=== PATIENT | male | born 1965 | race Caucasian/White ===

== ENCOUNTER 2019-03-26 22:54 | Inpatient (IN) ==
--- NOTE | 2019-03-26 23:23 | EKG Report ---
Test Performed on : 03/26/2019 11:12:48 PM Test Reason : IRREGULAR HR Blood Pressure : / mmHG Vent. Rate : 094 BPM Atrial Rate : 094 BPM P-R Int : 142 ms QRS Dur : 082 ms QT Int : 360 ms P-R-T Axes : -03 -12 -06 degrees QTc Int : 450 ms Normal sinus rhythm. Inferior infarct , age undetermined Abnormal ECG When compared with ECG of 21-JAN-2018 14:09, premature ventricular complexes. are no longer present Inferior infarct is now present Unconfirmed Result
[2019-03-27 02:12] LABS: BASO# 0.03 X1000 (0.0-0.2); EOS# 0.17 X1000 (0.0-0.7); EOS% 5.9 % (0.0-10.0); HEMATOCRIT 24.6 % (42.0-52.0); HEMOGLOBIN 8.2 g/dL (14.0-18.0); IMM GRAN# 0.02 X1000 (0.0-0.04); IMM GRAN% 0.7 % (0.0-0.5); LYMPH# 1.04 X1000 (1.2-3.4); LYMPH% 35.9 % (20.5-51.1); MCH 37.4 PG (27-31); MCHC 33.3 g/dL (33-37); MCV 112.3 FL (81-99); MONO% 10.3 % (1.7-9.3); MPV 8.4 FL (7.4-10.4); NEUT# 1.34 X1000 (1.4-6.5); NEUT% 46.2 % (42.2-75.2); PLT 126 X1000 (130-400); RBC 2.19 XMIL (4.7-6.1)
[2019-03-27 02:28] LABS: ALB/GLOB RATIO 1.4; ALBUMIN 3.8 g/dL (3.5-5.0); CALCIUM 9.2 mg/dL (8.8-10.2); CREATININE 2.7 mg/dL (0.7-1.2); POTASSIUM 3.9 mmol/L (3.5-5.1); TOTAL BILIRUBIN 0.42 mg/dL (0.20-1.00); TOTAL PROTEIN 6.5 g/dL (6.3-8.3)
[2019-03-27 03:19] LABS: URINE SOURCE CLEAN CATCH
[2019-03-27 03:22] LABS: BILIRUBIN URINE NEGATIVE (NEGATIVE); BLOOD URINE TRACE (NEGATIVE); COLOR YELLOW; GLUCOSE URINE NEGATIVE (NEGATIVE); KETONE URINE NEGATIVE (NEGATIVE); LEUKOCYTES URINE NEGATIVE (NEGATIVE); NITRITE URINE NEGATIVE (NEGATIVE); PROTEIN URINE NEGATIVE (NEGATIVE); SP GRAVITY URINE 1.009; TURBIDITY URINE CLEAR (CLEAR); UROBILINOGEN URINE NORMAL (NORMAL)
[2019-03-27 03:24] LABS: UR EPITHELIAL CELLS <10 /HPF (<10); URINE BACTERIA NEGATIVE /HPF; URINE RBC <10 /HPF (<10); URINE WBC <10 /HPF (<10)
[2019-03-27] MEDS ORDERED: NS 1,000 ML IV ONE (03:44)
--- NOTE | 2019-03-27 03:52 | PROVIDER DOCUMENTATION ---
This chart was entered by Miriam Trujillo Scribe, acting as scribe for Mark Richardson DO. HPI-General Adult - General Chief Complaint: B/P Problems Stated Complaint: HIGH HEART RATE, B/P LOW Time Seen by Provider: 03/27/19 01:19 Source: patient, family () Allergies/Adverse Reactions: Patient Allergies Allergy/AdvReac Type Severity Reaction Status Date / Time No Known Allergies Allergy Verified 01/08/15 10:54 Home Medications: Home Medication List Medication Instructions Recorded Confirmed Last Taken Type Cephalexin 500 mg PO TID 03/27/19 03/27/19 1 Day Ago History ~03/26/19 - History of Present Illness -Gen Adult Nature of Presenting Problems: Pt is a 53 yowm brought to the ED by his after pt's PCP told her over the phone to bring him to the ED because he had test results that concerned her. Pt has had low B/P episodes for the past month and went to PCP Friday. Pt's states that pt vomited blood last week and had a black runny bowel movement. Pt is alert and nontoxic in appearance. Location of Pain/Injury: reports: none Pain Radiation: reports: no radiation Quality of Pain: reports: none Severity: reports: mild Onset/Duration: reports: gradual, other (pt states he has not felt well the last month) Timing: reports: still present Context/Activities at Onset: reports: light activity Associated Symptoms: reports: cough, diarrhea (last week), nausea, vomiting (last week). denies: syncope Similar Symptoms Previously?: No Recently seen or treated by another doctor?: Yes (Friday at PCP) Review of Systems - Adult - REVIEW OF SYSTEMS - ADULT Constitutional: denies: chills, fever Eyes: denies: blurred vision, double vision Ears, Nose, Mouth & Throat: reports: see HPI, other (ulcer on inside of bottom lip) Cardiovascular: denies: chest pain, syncope Respiratory: denies: cough, shortness of breath Gastrointestinal: reports: diarrhea (last week, black runny bowel movement), vomiting (last week). denies: abdominal pain Genitourinary: reports: no symptoms reported Musculoskeletal: reports: no symptoms reported Integumentary: reports: no symptoms reported Neurological: denies: headache/migraines, syncope Psychiatric: reports: no symptoms reported Endocrine: reports: no symptoms reported Hematologic/Lymphatic: reports: no symptoms reported Allergic/Immunologic: reports: no symptoms reported All Other Systems: Reviewed and Negative Past History - Adult - PAST MEDICAL HISTORY-ADULT Review of Records: reports: Old Records Reviewed, Nursing Assessment Review, Medications Reviewed, Social history reviewed & non-contributory. Major Childhood Illnesses: reports: denies history Cardiovascular: reports: HTN Respiratory: reports: denies history Gastrointestinal: reports: denies history Genitourinary: reports: denies history Musculoskeletal: reports: denies history Neurological: reports: denies history Endocrine/Immune: reports: denies history Other Conditions: reports: denies history - PRIOR SURGERIES/PROCEDURES Surgical/Procedure History: reports: none - IMMUNIZATION STATUS Childhood Immunizations: See Nurse Assessment Flu Vaccine: See Nurse Assessment - FAMILY HISTORY Family History: CAD over 55 yo - SOCIAL HISTORY Smoking: non-smoker Substance Use: alcohol Alcohol Use Frequency: sober (former use) Living Situation: family () Physical Exam-General - PHYSICAL EXAM-ADULT Initial Vital Signs Reviewed: Yes - CONSTITUTIONAL General Appearance: appears well, alert, no apparent distress, obese - EYES Eyes: PERRL/EOMI - HEAD, EARS, NOSE, MOUTH & THROAT HENMT: moist mucous membranes - NECK Neck: non-tender, full range of motion, supple - RESPIRATORY Respiratory: chest non-tender, lungs clear, normal breath sounds, no pleuratic chest pain, no respiratory distress - CARDIOVASCULAR Cardiovascular: normal peripheral pulses, regular rate, rhythm, no edema - GASTROINTESTINAL (ABDOMEN) Abdominal Exam: normal bowel sounds, non tender, soft. negative: tenderness - MUSCULOSKELETAL Back Exam: normal inspection, no CVA tenderness, no vertebral tenderness Extremity: normal range of motion, non-tender, normal gait, normal inspection, no pedal edema - SKIN Integumentary: normal color, normal turgor - PSYCHIATRIC Psych/Mental Status: normal mood/affect, normal thought content, normal thought process, oriented x 3 Progress - PLAN OF CARE/RESULTS Progress/Plan/Lab Results: Vital Signs - 8 hr 03/26/19 22:58 Temperature 97.9 F Pulse Rate 90 Respiratory Rate 18 Blood Pressure 112/73 O2 Sat by Pulse Oximetry 95 Orders Category Date Time Status CHEST-2 VIEWS [RAD] Stat Exams 03/27/19 01:33 Ordered CBC WITH ELECTRONIC DIFF [HEME] Stat Lab 03/27/19 01:33 Uncollected CK PROFILE [SP CHEM] Stat Lab 03/27/19 01:33 Ordered COMPREHENSIVE METABOLIC PANEL [CHEM] Stat Lab 03/27/19 01:33 Ordered OCCULT BLOOD SCREENING [STOOL] Stat Lab 03/27/19 01:34 Uncollected TROPONIN T HIGH SENSITIVITY Stat Lab 03/27/19 01:33 Uncollected EKG [EKG] Stat Ther 03/26/19 23:02 Draft Result Diagrams: 03/27/19 01:35 03/27/19 01:35 - EKG 1 Time of EKG reading by physician:: 23:15 EKG Read and Signed by:: Mark Richardson EKG Interpretation (*Must complete 3 of following elements*): Abnormal Rate: 94 Rhythm: NSR Flippin: normal QRS: normal Comments: Inferior infarct, age undetermined - XRAY 1 XRAY Study: Chest Impression: See EMR Report Departure - Departure Date of Disposition Decision: 03/27/19 Time of Disposition Decision: 03:52 DIAGNOSIS: Acute renal failure Qualifiers: Acute renal failure type: unspecified Qualified Code(s): N17.9 - Acute kidney failure, unspecified Disposition: ADMITTED INPATIENT 09 Certified Medical Emergency: Emergent Condition: Fair Referrals and Follow-Ups: Ana Corea MD [Primary Care Provider] - - Critical Care Note This patient required my direct & personal management of CC.: No Attestation - Physician/ LUCITA Attestation Patient care was provided by Advanced Practice Provider:: No The physician spent face to face time with patient:: Yes Advanced Practice Provider documentation review:: Supervising physician onsite and consulted in the evaluation and care of this patient. The physician did have a face to face encounter with the patient. This chart was documented by the indicated scribe, (Miriam Trujillo Scribe) and accurately reflects the services I performed and decisions made by me, Mark Richardson DO, as attested by the provider's signature.
--- NOTE | 2019-03-27 05:07 | HISTORY AND PHYSICAL ---
ADDENDUM: Mr. David Bhat is here in our ER at the behest of his primary care provider telling him to go to the ER because of abnormal blood work. The patient states that a few days ago he had coffee grounds emesis and a few melanotic stools. Other than that, does not have any acute complaints and denies any cardiorespiratory complaints or leg swelling. His hemoglobin 8, down from 9. His creatinine is 2.7, up from 0.8 although this is over a year ago. He denies bleeding from any other orifice. No PND, orthopnea or pedal edema. He does still drink a pint of vodka at least every other day and states he enjoys getting "high" from drinking. He has no immediate desire to quit drinking liquor. I have made the patient aware of the risk he subjecting himself to by drinking an ordinate amount of alcohol and I told him that I believe the pancytopenia noted on his blood work is a result of his alcohol. I do believe that he may have alcoholic liver disease. The main reason why we are admitting him is because of his elevated creatinine, I want to determine if it is acute or acute on chronic or chronic. We will give him the IV fluids. Replete his creatinine tomorrow morning. If it drops, we will continue with this regimen while discontinuing any potential nephrotoxic medications. Anemia workup will be ordered. Banana bag will be given, p.r.n. Ativan will be administered or patient could be offered alcohol since he does want to quit drinking, but because of his recent history of presumed upper GI emesis, this would not be a good idea. IV PPIs will be administered also. His exam is essentially unremarkable, except for a friction blister at the medial aspect of his right great toe. Otherwise, he is morbidly obese and may benefit from sleep evaluation. cc: Anabell Harrington MD
[2019-03-27 05:11] LABS: INR 1.03; PROTIME 13.6 Seconds (11.0-16.0)
[2019-03-27 05:12] LABS: PTT 26.5 Seconds (22.3-41.8)
[2019-03-27 05:19] LABS: MAGNESIUM 1.7 mg/dL (1.5-2.7)
[2019-03-27 05:21] LABS: UR AMPHETAMINES QUAL NONE DETECTED (NONE DETECT); UR BARBITUATES QUAL NONE DETECTED (NONE DETECT); UR BENZODIAZEPIN QUAL NONE DETECTED (NONE DETECT); UR CANNABINOIDS QUAL NONE DETECTED (NONE DETECT); UR COCAINE QUAL NONE DETECTED (NONE DETECT); UR METHADONE QUAL NONE DETECTED (NONE DETECT); UR OPIATES QUAL NONE DETECTED (NONE DETECT); UR OXYCODONE QUAL NONE DETECTED (NONE DETECT); UR PCP QUAL NONE DETECTED (NONE DETECT)
[2019-03-27] MEDS ORDERED: TYLENOL PO PRN (07:59)
[2019-03-27] MEDS ORDERED: ZOFRAN IV PRN (07:59)
[2019-03-27] MEDS ORDERED: SODIUM CHLORIDE 0.9% INJ SCH (08:00)
[2019-03-27 08:18] LABS: ALBUMIN 3.4 g/dL (3.5-5.0); CREATININE 2.4 mg/dL (0.7-1.2); PHOSPHORUS 2.4 mg/dL (2.7-4.5); POTASSIUM 3.9 mmol/L (3.5-5.1)
[2019-03-27] MEDS: NS 1,000 ML IV SCH ×2 (08:29→23:02)
[2019-03-27] MEDS: PROTONIX IV SCH ×2 (08:29→21:16)
--- NOTE | 2019-03-27 08:35 | Diag Imaging Result Doc PS360 ---
EXAM: CHEST-2 VIEWS INDICATION: hypertension TECHNIQUE: 2 views COMPARISON: None. FINDINGS: There is a right upper lobe calcified granuloma. The lungs are grossly clear, otherwise. There is no discrete pleural fluid collection or pneumothorax. The cardiomediastinal silhouette and central vasculature are grossly unremarkable. IMPRESSION: No evidence of acute pathology by plain radiograph. Electronically signed by Jose Trinidad 03/27/2019 8:32 AM
[2019-03-27 08:39] LABS: UR CREAT RANDOM 75.8 mg/dL (14-26); UR PROT RANDOM 14.2 mg/dL
[2019-03-27] MEDS: M.V.I.-12 10 ML, FOLIC ACID 1 MG, MAGNESIUM SULFATE 1 GM, THIAMINE 100 MG in NS 1,000 ML IV SCH (09:57)
[2019-03-27] MEDS: HUMULIN R SUBQ SCH ×3 (11:08→23:01)
[2019-03-27 11:38] LABS: HEMATOCRIT 23.8 % (42.0-52.0)
[2019-03-27 11:56] LABS: HEMOGLOBIN A1C 4.7 % (4.8-6.0)
--- NOTE | 2019-03-27 13:43 | Diag Imaging Result Doc PS360 ---
EXAM: US RENAL 2 (RETROPER) COMPLETE 03/27/2019 HISTORY: decreased renal function TECHNIQUE: Renal ultrasound COMMENT: The urinary bladder is normal in appearance. Visualization of the left kidney is somewhat suboptimal. There is no evidence of hydronephrosis on either side. The right kidney is 11.3 x 6.5 x 6.9 cm the left is 8.4 x 4.3 x 5.1 cm. There are incidentally noted gallstones some which measure up to a centimeter in size. There is no sonographic Muse sign. IMPRESSION: No evidence of obstructive uropathy. Cholelithiasis. Electronically signed by Juan Santos 03/27/2019 1:41 PM
[2019-03-27] MEDS: ATIVAN IV PRN (13:54)
[2019-03-27] MEDS: LIBRIUM PO SCH ×3 (13:54→23:00)
[2019-03-27 16:42] LABS: URINE SOURCE CATH
[2019-03-27 16:50] LABS: BILIRUBIN URINE NEGATIVE (NEGATIVE); BLOOD URINE NEGATIVE (NEGATIVE); COLOR YELLOW; GLUCOSE URINE TRACE mg/dL (NEGATIVE); KETONE URINE TRACE mg/dL (NEGATIVE); LEUKOCYTES URINE NEGATIVE (NEGATIVE); NITRITE URINE NEGATIVE (NEGATIVE); PROTEIN URINE NEGATIVE (NEGATIVE); SP GRAVITY URINE 1.012; TURBIDITY URINE CLEAR (CLEAR); UROBILINOGEN URINE NORMAL (NORMAL)
[2019-03-27 16:51] LABS: UR EPITHELIAL CELLS <10 /HPF (<10); URINE BACTERIA NEGATIVE /HPF; URINE RBC <10 /HPF (<10); URINE WBC <10 /HPF (<10)
[2019-03-27 17:09] LABS: UR CREAT RANDOM < 4.2 mg/dL (14-26); UR PROT RANDOM < 4.0 mg/dL; UR SODIUM 42 mmoll
--- NOTE | 2019-03-27 17:53 | HISTORY AND PHYSICAL ---
DATE AND TIME: 03/27/2019 at 0530. CHIEF COMPLAINT: Abnormal labs. HISTORY OF PRESENT ILLNESS: Mr. Bhat is a 53-year-old male past medical history of hypertension, arthritis, diabetes mellitus, diabetic neuropathy and alcohol abuse. The patient states that he was sent to the ER for further evaluation due to abnormal labs related to renal function. The patient as well as reports there has been a recent increase in his creatinine. The patient did state that over the past month he has had some generalized weakness and fatigue. He did report that several days ago right around beginning the new year that he did have a few episodes of coffee-grounds emesis as well as melenic stools though this did not last more than a period of like 24 hours then resolved on its own. The patient states he has not had any further episodes of this since and actually at this time is not reporting any other symptoms. He denies any headache. He did state that he does occasionally sometimes become dizzy though this usually when he goes from a lying to a sitting or sitting to a standing position quickly. He denies any chest pain, shortness of breath, he only reports occasional cough though this is not worsened. He denies any abdominal pain, nausea, vomiting or diarrhea at present. He denies any dysuria or any noticeable decreased urine output. He does have some occasional swelling in bilateral lower extremities though at this time this is not worsened. He does have diabetic neuropathy though denies any other new or worsened pain, numbness, tingling or swelling in extremities . He denies any fever, body aches or chills. The patient reports that he was taking lisinopril, metformin and gabapentin. He also reports that they did add on hydrochlorothiazide to his lisinopril and the patient is reporting that they placed him on allopurinol to help with the renal function. Though he did state that when he recently saw his physician that they did hold pretty much all of his medications due to his current renal function. The patient does report that he uses [id number] ibuprofen he takes up to 800 mg twice daily. He also does have alcohol abuse as well. He reports that he drinks up to 2 pints of vodka a day though states he can go periods of time without having withdrawal symptoms though he did report last week after not drinking for few days he did become shaky though other than this did not have any other reported symptoms . He denies any history of any confusion or altered mental status or seizures due to not drinking. The patient reports that his last alcoholic beverage was just a few hours prior to his arrival to the ER. He also has reported right after he did have his few episodes of vomiting coffee ground emesis he did he did have a sore throat almost like it burned every time he ate. This is likely secondary to his vomiting episode possible some esophagitis. The patient was placed inpatient admission for further treatment evaluation of acute kidney injury, pancytopenia, possible upper GI bleed and alcohol abuse. REVIEW OF SYSTEMS: A 14 point review of systems was conducted with the patient and all were negative except for pertinent positives mentioned in the HPI. PAST MEDICAL HISTORY: 1. Hypertension. 2. Arthritis. 3. Diabetes mellitus type 2. 4. Diabetic neuropathy. 5. History of alcohol abuse. PAST SURGICAL HISTORY: Right ankle surgery which the patient did previously have hardware placed though in January 2018 due to infection he did have revision of the surgery and did have his hardware removed. SOCIAL HISTORY: The patient denies any previous tobacco or illicit drug use though does report that he drinks approximately up to 2 pints of vodka a day. The patient states that this time he only drink vodka though previously did have a history of drinking other liquors which include whiskey and beer. He states that he has had heavy daily alcohol use now for a period of 6-8 years. FAMILY HISTORY: Positive for his mother having history of lung cancer. His father had a history of heart disease and did have CABG and stents placed. ALLERGIES: Patient has no known allergies. HOME MEDICATIONS: The patient reports that he is not taking any medications this time because they have been held, he did reportedly previously take lisinopril/hydrochlorothiazide, metformin, gabapentin, allopurinol and does take over the counter ibuprofen daily. DIAGNOSTIC DATA: White blood cell count 2900, hemoglobin 8.2, hematocrit 24.6, platelet count 126,000, PT 13.6, INR 1.03, PTT is 26.5. Sodium 135, potassium 3.9, chloride 93, serum bicarb is 23, BUN 41, creatinine 2.7, GFR is 25, glucose 90, calcium 9.2, magnesium 1.7. Liver function tests within normal limits. CK 37, troponin T 49. Urinalysis was obtained via clean catch was positive for some trace blood though was otherwise negative for glucose, ketones, nitrites, bilirubin, leukocytes, white blood cell or bacteria. Chest x-ray showed no evidence of acute pathology per Radiology. EKG showed normal sinus rhythm at a rate of 94 with a QTc of 450. PHYSICAL EXAMINATION: VITAL SIGNS: At this time temperature 98.3 degrees, heart rate 98, respirations 14, blood pressure is 128/80, oxygen saturation is 98% on room air. GENERAL: Mr. Bhat is a 53-year-old obese male who is resting in the ER stretcher he was in no acute distress. He was awake, alert, able to answer questions appropriately. HEENT: Head is atraumatic, normocephalic. Pupils are equal, round, reactive to light, were 3 mm bilaterally and brisk. Oral mucosa was moist. Oropharynx is clear. NECK: Supple, trachea midline. CARDIOVASCULAR: Patient has S1-S2 present. No murmurs, gallops, rubs appreciated, regular rate and rhythm. PULMONARY: Patient has symmetrical chest expansion bilaterally. Lung sounds are clear to auscultation in bilateral full antonio. ABDOMEN: Soft, nontender, does not appear to be distended the patient does have a protuberant abdomen noted. Bowel sounds were present all 4 quadrants were normoactive. EXTREMITIES: No cyanosis or edema noted. Pulse, motor and sensory were intact in all extremities. Radial and pedal pulses were 2+ bilaterally. The patient did have a friction blister noted on the medial aspect of his right great toe. INTEGUMENTARY: Patient's skin is pink, warm, and dry . NEUROLOGICAL: Patient is alert and oriented to person, place, time and situation. He is able move all extremities. There are no focal neurological deficits noted. ASSESSMENT AND PLAN: 1. Acute kidney injury. This could be multifactorial, could be secondary to the fluid volume depletion. The patient is a daily drinker. He did report recently having a 1 day history of having several episodes of coffee-ground emesis as well as melenic stools. Though this has resolved. He also did continue taking medications of metformin, lisinopril/hydrochlorothiazide, allopurinol and ibuprofen 800 mg twice a day. This could have contributed to his acute kidney injury. We will hydrate the patient, he did receive a 1 L normal saline bolus in the emergency room, will continue with some gentle intravenous hydration as well. We will do strict intake and output continue monitor closely. We have placed a consult with Nephrology with Dr. Blackwell we will await his evaluation and further recommendations for management. 2. Pancytopenia. The patient did report several days ago that he had some coffee-grounds emesis and melenic stools. We will go ahead and evaluate him to rule out possible upper gastrointestinal bleeding though this is likely also secondary to his history of alcohol abuse. We have ordered anemia profile this time we are awaiting these results though he is hemodynamically stable. He is not require any need for transfusion at this time. We will continue to follow. 3. Possible upper gastrointestinal bleed. The patient does have a long history of several years of heavy daily alcohol use. He does report symptoms of burning when he eats or drinks as well as several days ago he did have reports of coffee-ground emesis and melenic stools. Though he states this time this has resolved. We have ordered anemia profile. We will go ahead and place the patient on PPI of Protonix 40 mg IV q.12 hours and provide some gentle hydration. We have placed a consult with Dr. Norman with Gastroenterology, we will await his evaluation and further recommendations for management will continue to follow. 4. Alcohol abuse. The patient states he has been drinking daily for a period of 6 to 8 years. Most recently he does drink up to 2 pints of vodka a day. Though he does not report that he normally has any symptoms of withdrawal when he goes without drinking. Though did report last week he did become shaky after not drinking for a day or 2. We will continue to monitor him closely for alcohol withdrawal. We will place orders for p.r.n. Ativan if needed. We did ask the patient about his alcohol consumption and whether or not he had intentions or desire to quit drinking. The patient stated that he had no immediate desire to quit drinking. He also did state that he enjoys the high he gets from drinking. He will be on continuous cardiac telemetry, will do frequent vital signs, will monitor him for alcohol withdrawal, we will monitor his electrolytes closely as well. We will go ahead and place him with a banana bag daily as well, will continue to follow. 5. History of diabetes mellitus. The patient normally takes metformin though we are holding this time given his renal function. We will place him on a sliding scale insulin per low-dose protocol, will do pattern fingerstick blood sugars. 6. History of hypertension. The patient normally takes lisinopril /hydrochlorothiazide though we are holding this at this time as well due to his renal function. Blood pressures at this time have been within normal limits, will just continue monitor these at this time, will implement antihypertensive if necessary. 7. Deep vein thrombosis prophylaxis provided with sequential compression devices. The patient was placed on the medical floor with telemetry. He will have vital signs q.4 hours, do strict intake and output. Further orders and recommendations pending hospital course, diagnostic studies and physician evaluation. Dictated by SCOT Robles for Anabell Harrington MD cc: Anabell Harrington MD MTDD
[2019-03-27 18:30] LABS: HEMATOCRIT 25.1 % (42.0-52.0); HEMOGLOBIN 8.3 g/dL (14.0-18.0)
--- NOTE | 2019-03-27 19:25 | NEPHROLOGY CONSULTATION ---
DATE: 03/27/2019 REASON FOR CONSULTATION: Acute kidney injury. HISTORY OF PRESENT ILLNESS: Mr. Bhat is a 53-year-old man who is followed by Dr. Sierra. He had normal renal function as recently as February 2018. We do not have any interposing data. He had an episode of nausea and vomiting with coffee-grounds emesis and melena approximately a week ago. He is a heavy drinker but no other listed risk factors. He had labs done with Dr. Sierra and his creatinine was elevated at 4 and so his SERAFIN inhibitor was discontinued and he was referred to Dr. Corea who he saw in the office on . His beta-quintin was also discontinued. She re- collected laboratory data and scheduled an ultrasound. When his data was reviewed by Dr. Corea last evening, she recommended that he come to the emergency room because of his history of hematemesis and his tachycardia. She was concerned about profound anemia. His evaluation in the emergency room found blood pressure 112/73 and heart rate of 90. His initial hemoglobin was 8.2. He has not had any further melena or hematochezia. No chills, fever, sweats, night sweats. He has not been aware previously of kidney disease. His is relating the fact that all medications were discontinued but allopurinol was added and she was under the understanding that was related to his kidneys. PAST MEDICAL HISTORY: Alcoholism, hypertension. SOCIAL HISTORY: As above. , lives with his . FAMILY HISTORY: Noncontributory. REVIEW OF SYSTEMS: Noncontributory. PHYSICAL EXAMINATION: Vital Signs: Blood pressure 147/79, heart rate 94, respirations 15, afebrile. General: Obese white male, no acute distress. Skin is warm and dry. No bruises. Conjunctivae are pink. Pupils are equal. Oropharynx is clear. Normal tongue. Normal teeth. Neck: Supple. Trachea is midline. Neck vein 6 cm without hepatojugular reflux. PMI not palpable. Regular rate and rhythm with no murmurs, rubs or gallops. Lungs: Have equal breath sounds. No crackles or wheezes. Abdomen: Obese, soft, nontender. Bowel sounds are present. No organomegaly or masses. Extremities: No edema, clubbing or cyanosis. IMPRESSION: Acute kidney injury. His renal function is slowly improving. Peak creatinine was 4.[address] Sierra's office. Likely intravascular volume depletion associated with hypotension and an SERAFIN inhibitor. I agree with your care thus far. He has no acute indications for dialysis. I agree with pursuing imaging to exclude obstructive uropathy. Otherwise, we will simply observe as his kidney function improves. Hydrate if needed but he appears euvolemic currently. cc: Manolo Blackwell MD
[2019-03-28 02:21] LABS: HEMATOCRIT 23.4 % (42.0-52.0); HEMOGLOBIN 7.7 g/dL (14.0-18.0)
[2019-03-28] MEDS: LIBRIUM PO SCH ×4 (04:51→22:45)
[2019-03-28 05:49] LABS: BASO# 0.02 X1000 (0.0-0.2); BASO% 0.6 % (0.0-0.8); EOS# 0.16 X1000 (0.0-0.7); EOS% 4.4 % (0.0-10.0); HEMOGLOBIN 7.8 g/dL (14.0-18.0); LYMPH# 0.76 X1000 (1.2-3.4); LYMPH% 21.1 % (20.5-51.1); MCH 38.6 PG (27-31); MCHC 32.5 g/dL (33-37); MCV 118.8 FL (81-99); MONO# 0.33 X1000 (0.11-0.59); MONO% 9.1 % (1.7-9.3); NEUT# 2.34 X1000 (1.4-6.5); NEUT% 64.8 % (42.2-75.2); PLT 117 X1000 (130-400); RBC 2.02 XMIL (4.7-6.1); RDW 13.5 % (11.5-14.5); WBC 3.61 X1000 (4.8-10.8)
[2019-03-28] MEDS: HUMULIN R SUBQ SCH ×4 (06:06→21:02)
[2019-03-28 06:37] LABS: ALB/GLOB RATIO 1.1; ALBUMIN 3.2 g/dL (3.5-5.0); CREATININE 1.6 mg/dL (0.7-1.2); MAGNESIUM 1.5 mg/dL (1.5-2.7); POTASSIUM 4.1 mmol/L (3.5-5.1); TOTAL BILIRUBIN 0.89 mg/dL (0.20-1.00); TOTAL PROTEIN 6.1 g/dL (6.3-8.3)
[2019-03-28] MEDS ORDERED: MAGNESIUM SULFATE 2 GM/S.W.I. 2 GM/50 ML IVPB IV ONE (07:56)
--- NOTE | 2019-03-28 08:18 | PROGRESS NOTE ---
DATE: 03/28/2019 SUBJECTIVE: This patient seems to be feeling better compared with yesterday. Yesterday, he was having some tremors at the level of the upper extremities but today he has just some mild tremors, not like yesterday. I will continue with Librium, which I started yesterday, and I will continue with the IV fluids as well as the banana bag. For his possible withdrawal symptoms, we will continue with Ativan as needed as well. Pending Gastroenterology recommendations for his possible gastrointestinal bleed, his hemoglobin is 7.8, and the previous one was 7.7, but he has been getting IV fluids, so I will just keep an eye on him. As per the patient, the last time he had a dark bowel movement was around February. His magnesium is borderline low and I will replace it. PHYSICAL EXAMINATION: Vital Signs: Temperature 98.2 degrees, pulse 84, respiratory rate 19, blood pressure 140/74, oxygen saturation 100%. HEENT: Head normocephalic. No trauma. PERRLA. Neck: Supple. No JVD. No masses. Central trachea. Chest: Clear to auscultation. No wheezing. No rales. Abdomen: Soft. Some tenderness to palpation at the level of the epigastric area. Extremities: No edema, no clubbing, no cyanosis. Neurological: The patient is awake alert. He is oriented x3. Mild upper extremity tremors. LABORATORY DATA: WBC 3.6, hemoglobin 7.8, hematocrit 24, platelets 117,000. Sodium 141, potassium 4.1, chloride 103, bicarbonate 23, BUN 26, creatinine 1.6, glucose 85, calcium 9, magnesium 1.5, albumin 3.2. ASSESSMENT AND PLAN: 1. Acute kidney injury. This could be multifactorial. This is getting better. He is a heavy drinker/alcoholic. We will avoid nephrotoxic medications. We will continue to monitor. This is getting better. Nephrology department on board. 2. Pancytopenia in a patient who has had coffee-ground emesis and melenic stools probably last month. He denies any problem at this moment. He is a heavy drinker. His pancytopenia could be multifactorial due to alcohol intake including bone marrow suppression. 3. Mild alcohol withdrawal symptoms. Continue with Librium and Ativan as needed. 4. Possible upper gastrointestinal bleed. Gastroenterology Department has been consulted, pending recommendations. 5. Alcohol abuse. This patient has been highly advised against alcohol use. I will continue with daily cessation education. Yesterday, we had a conversation for at least 30 minutes. 6. History of diabetes. Normally he takes metformin, but we are holding this medication. Stable. 7. History of hypertension. Apparently this patient takes lisinopril hydrochlorothiazide, but we are holding this medication because of the kidney dysfunction. His blood pressure has been stable. 8. Deep vein thrombosis prophylaxis with sequential compression devices. 9. Sleep apnea. This patient is using a CPAP machine at home. 10. Hypomagnesemia. I will replace the magnesium. I believe I will keep this patient one more day in the hospital to monitor his withdrawal symptoms, as well as his hemoglobin. I will repeat the hemoglobin today in the afternoon around 6 p.m. I do not see any active bleeding at this moment. Pending the recommendations of Gastroenterology Department, if this patient is not going to get any kind of procedure, probably I will discharge this patient home tomorrow if everything is okay. cc: Evairsto Martinez MD
[2019-03-28] MEDS: PROTONIX IV SCH ×2 (08:44→20:56)
[2019-03-28] MEDS: M.V.I.-12 10 ML, FOLIC ACID 1 MG, MAGNESIUM SULFATE 1 GM, THIAMINE 100 MG in NS 1,000 ML IV SCH (08:44)
[2019-03-28] MEDS: ATIVAN IV PRN (11:09)
--- NOTE | 2019-03-28 14:38 | GASTROENTEROLOGY CONSULTATION ---
DATE: 03/27/2019 REASON FOR CONSULT: Upper GI bleed. HISTORY OF PRESENT ILLNESS: Mr. Bhat is a 53-year-old male who came to the ER on Friday night mentioning that he had gone to his primary care provider and was asked to do some blood work, his BUN and creatinine was abnormal. he was asked to see Dr. Corae. He saw Dr. Corea on and she asked him to get admitted to the hospital. Patient reported that Friday night his heart rate was elevated. He had denied any abdominal pain but had 1 episode of vomiting where he noticed that there was some blood in his vomit which looked like coffee- ground emesis. The patient also had bowel movements which was black and tarry. He said that his throat was hurting and he was gagging all the time. The patient has mentioned that he does take aspirin and Motrin and he also drinks vodka every day. The last time patient was in the hospital was in January 2018 when he had a surgery on his right ankle and some infection in his right ankle. Patient also has an ulcer on his right foot near the big toe. The patient has a history of hypertension, arthritis, diabetes, neuropathy and alcohol abuse. He does complain of numbness and tingling in his lower extremities. The patient has denied having any fever, chills or shortness of breath. PAST MEDICAL HISTORY: Hypertension, arthritis, gout, diabetes type 2, diabetic peripheral neuropathy, history of alcohol abuse. PAST SURGERIES: Right ankle surgery in January 2018. FAMILY HISTORY: His mother had lung cancer, father had a history of heart disease, CABG and stent placed. SOCIAL HISTORY: The patient is currently single, has 2 kids, lives with his girlfriend. He denied any smoking or illicit drug but does have 2 pints of vodka a day. Patient mentioned that he used to have cocaine in the past. ALLERGIES: No known drug allergies. HOME MEDICATIONS: Allopurinol 300 mg daily, ibuprofen 200 mg twice a day, lisinopril 20 mg daily, cephalexin 500 mg 3 times a day and metoprolol tartrate 50 mg twice a day. REVIEW OF SYSTEMS: As per HPI otherwise, 12 point review of system is negative. PHYSICAL EXAMINATION: Vital Signs: Temperature 98.1 degrees, pulse 100, respiration 16, blood pressure 135/88, oxygen saturation 98% on room air, patient's weight is 256 pounds, BMI 39.1 kg per meter square. General: He is alert, oriented x3, morbidly obese, answering questions appropriately and in no acute distress. HEENT: Pale conjunctivae, no icterus. PERRL. Neck: Supple. Lungs: Clear to auscultation. Cardiovascular: Patient is tachycardic. Abdomen: Obese, soft, nontender. Hypoactive bowel sounds heard in all 4 quadrants. Extremities: No clubbing, no cyanosis, generalized edema in the lower extremities and ulcer on his right foot near the big toe and some surgical scars on right ankle. Neurological: Alert, oriented x3 nonfocal. Cranial nerves 2-12 grossly intact. LAB: WBCs are 2.90, RBC 2.19, hemoglobin 8.2, hematocrit 24.6, platelet count 126,000. PT 13.6, INR 1.03, sodium 138, potassium 3.9, chloride 98, carbon dioxide 21, anion gap 19, BUN 38, creatinine 2.4, glucose 85, calcium 9.0, phosphorus 2.4, albumin is 3.4. Urinalysis had shown trace of ketones, trace of blood. Toxicology report has shown alcohol level 187. Stool for occult blood was negative. IMAGING: Patient's chest x-ray has shown no evidence of acute pathology. His renal ultrasound show no evidence of obstructive uropathy, cholelithiasis. IMPRESSION: 1. Gastrointestinal bleed . 2. Coffee-grounds emesis. 3. Acute kidney injury. 4. Hypertension . 5. Type 2 diabetes. 6. Peripheral neuropathy. 7. Alcohol abuse. PLAN: Mr. Bhat is a 53-year-old male with a history of hypertension, diabetes, peripheral neuropathy and alcohol abuse. Gastroenterology has been consulted for his upper gastrointestinal bleed. Patient is currently on Protonix 40 mg intravenous twice a day, he is receiving in MVI bag at 150 mL per hour, patient is also on Librium. His diabetes is managed by insulin Humulin as per sliding scale. For his nausea and vomiting patient is on Zofran every 6 hours. Patient's hemoglobin and hematocrit is 8.3 and 25.1. We plan to do an EGD on Friday, we have discussed the risks, benefits and alternatives to the patient and the family member, patient acknowledges understanding of the plan of care. Further plan of care will be based on the EGD findings. This plan was discussed with Dr. Norman. Thank you for your consult. Please call us for any further questions or concerns. Dictated by SCOT Matias for Grabiel Norman MD cc: Grabiel Norman MD [facility]
[2019-03-28 17:59] LABS: HEMATOCRIT 22.5 % (42.0-52.0); HEMOGLOBIN 7.3 g/dL (14.0-18.0)
--- NOTE | 2019-03-28 19:41 | GASTROENTEROLOGY PROGRESS NOTE ---
DATE: 03/28/2019 SUBJECTIVE: Mr. Bhat is a 53-year-old male resting in bed with family at the bedside. The patient denies any nausea, vomiting, or abdominal pain. The patient also has denied noticing any black tarry stools today. He had 2 bowel movements yesterday, but he has denied having any bowel movements today. OBJECTIVE: Vital Signs: Temperature 98 degrees, pulse 103, respirations 16, blood pressure 127/78, oxygen saturation 99% on room air. Patient's weight is 256 pounds. BMI is 39.1 kg/m2. General: He is alert, oriented x3, and in no acute distress. HEENT: Pale conjunctivae. No icterus. PERRL. Neck: Supple. Lungs: Clear to auscultation. Cardiovascular: Patient is tachycardic. Abdomen: Obese, soft, nontender. Hypoactive bowel sounds heard in all 4 quadrants. Extremities: No clubbing. No cyanosis. Generalized edema in the lower extremities. The patient has ulcer on his right foot on the big toe and previous surgical scars on the right ankle noted. Neurologic: He is alert and oriented x3. LABS: WBCs are 3.61, RBC 2.02, hemoglobin 7.8, hematocrit is 24, platelet count is 117. Sodium 141, potassium 4.1, chloride 103, carbon dioxide 23, anion gap 15, BUN 26, creatinine 1.6, glucose 85, calcium 9, magnesium 1.5, total bilirubin 0.89, AST 24, ALT 20, alkaline phosphatase is 46. IMPRESSION AND PLAN: GI bleed Coffee ground emesis Acute Kidney injury Hypertension Type II diabetes Peripheral neuropathy Alcohol abuse PLAN: Mr. Bhat is a 53-year-old male with a history of hypertension, diabetes, peripheral neuropathy, and alcohol abuse. GI is following him for his upper GI bleed. The patient is currently receiving Protonix 40 mg IV twice a day. He is receiving MVI bag at 150 mL per hour. The patient's diabetes is managed by insulin, Humulin regular on a sliding scale. We plan to do an EGD tomorrow to rule out the cause of his bleeding. We have discussed the risks, benefits, and alternatives of the procedure to the patient. The patient acknowledges understanding of the plan of care. Further plan of care will be based on the EGD findings. We will continue to monitor the patient and follow the plan of care per PCP. This plan was discussed with Dr. Norman. Please call us for any further questions or concerns. Dictated by SCOT Matias for Grabiel Norman MD cc: Grabiel Norman MD [facility]
[2019-03-29] MEDS: ATIVAN IV PRN (02:52)
[2019-03-29] MEDS: LIBRIUM PO SCH ×4 (04:45→23:58)
[2019-03-29 05:26] LABS: BASO# 0.02 X1000 (0.0-0.2); BASO% 0.4 % (0.0-0.8); EOS# 0.19 X1000 (0.0-0.7); HEMATOCRIT 22.2 % (42.0-52.0); HEMOGLOBIN 6.9 g/dL (14.0-18.0); LYMPH% 18.9 % (20.5-51.1); MCH 36.5 PG (27-31); MCHC 31.1 g/dL (33-37); MCV 117.5 FL (81-99); MONO# 0.35 X1000 (0.11-0.59); MONO% 7.4 % (1.7-9.3); MPV 8.6 FL (7.4-10.4); NEUT% 69.3 % (42.2-75.2); PLT 121 X1000 (130-400); RBC 1.89 XMIL (4.7-6.1); RDW 13.2 % (11.5-14.5); WBC 4.76 X1000 (4.8-10.8)
[2019-03-29 05:47] LABS: ALB/GLOB RATIO 1.2; ALBUMIN 3.1 g/dL (3.5-5.0); CALCIUM 8.8 mg/dL (8.8-10.2); CREATININE 1.6 mg/dL (0.7-1.2); POTASSIUM 3.7 mmol/L (3.5-5.1); TOTAL BILIRUBIN 0.81 mg/dL (0.20-1.00); TOTAL PROTEIN 5.7 g/dL (6.3-8.3)
[2019-03-29] MEDS: HUMULIN R SUBQ SCH ×2 (06:30→18:12)
[2019-03-29 06:36] LABS: EOS 3 % (1-10); LYMPHS 20 % (21-51); MONO 8 % (1-9); SEGS 69 % (42-75)
[2019-03-29] MEDS ORDERED: NS 500 ML IV ONE (07:32)
[2019-03-29] MEDS ORDERED: XYLOCAINE-MPF 2% ONE (08:13)
[2019-03-29] MEDS ORDERED: DIPRIVAN 1% ONE (08:13)
--- NOTE | 2019-03-29 08:47 | PROGRESS NOTE ---
DATE: 03/29/2019 SUBJECTIVE: The patient is feeling better. He is going to get an EGD today. I have decreased the dose of Librium. Hemoglobin is 6.9 and I will give him a unit of blood. OBJECTIVE: Vital Signs: Temperature 98 degrees, pulse 79, respiratory rate 17, blood pressure 129/82, oxygen saturation 99 on room air. HEENT: Head normocephalic. No trauma. PERRLA. Neck: Supple. No JVD. No masses. Central trachea. Chest: Clear to auscultation. No wheezing. No rales. Abdomen: Soft. Some mild tenderness to palpation at the level of the periumbilical area. Extremities: No edema, no clubbing, no cyanosis. He does have a chronic ulcer on the right dorsal aspect of the right foot. Neurological Examination: The patient is awake. He is oriented x3. No focal neurological deficits at this moment. Laboratory: WBC 4.7, hemoglobin 6.9, hematocrit 22.2, platelets 121,000. Sodium 142, potassium 3.7, chloride 107, bicarbonate 23, BUN 18, creatinine 1.6, glucose 87, calcium 8.8. ASSESSMENT AND PLAN: 1. Acute kidney injury, multifactorial. He is having a decent urine output, around 2 L. He is tolerating oral intake. BUN normalized. Creatinine still a little bit high at 1.6 but I believe this is going to be improved. 2. Pancytopenia in a patient who has had coffee-grounds emesis and melenic stools. He will be transfused today. He will receive 1 unit of packed red blood cells. Platelet count stable, white blood cell count improving slowly. Probably, there is a component of alcohol use and bone marrow suppression. 3. Mild alcohol withdrawal symptoms. Continue with Librium, which I have decreased the dose. 4. Possible upper gastrointestinal bleed, pending esophagogastroduodenoscopy today. 5. Alcohol abuse. This patient has been highly advised against alcohol use. I will continue with daily cessation education. 6. History of diabetes. Normally, he takes metformin but we are holding this medication for now. His hemoglobin A1c though is 4.7 so I am not quite sure about that diagnosis unless it is really well-controlled. 7. History of hypertension. We are holding lisinopril and hydrochlorothiazide because of his kidney dysfunction. Vital signs have been stable during this hospitalization. I do not think I am going to restart both medications, probably one of then, likely will be the SERAFIN inhibitor in the future. 8. Deep vein thrombosis prophylaxis with sequential compression devices. 9. Sleep apnea. This patient is using a CPAP machine at home. 10. Hypomagnesemia. This has been replaced. 11. Right dorsal foot ulcer. Aware. Orthopedic surgery on board. cc: Evaristo Martinez MD
[2019-03-29] MEDS ORDERED: VERSED ONE (08:49)
--- NOTE | 2019-03-29 09:01 | ENDOSCOPY OPERATIVE NOTE ---
[facility] ENDOSCOPY OPERATIVE NOTE , EGD PROCEDURE REPORT EXAM DATE: 03/29/2019 PATIENT NAME: David Bhat MR#: [id number] BIRTHDATE: 1965 ATTENDING: Caden Saxena MD STATUS: inpatient GROUP EXERCISE CLASS INSTRUCTOR: INDICATIONS: The patient is a 53 yr old male here for an EGD due to Anemia, melena, Coffee ground em esis. PROCEDURE PERFORMED: EGD, diagnostic MEDICATIONS: Per Anesthesia ESTIMATED BLOOD LOSS: None CONSENT: The patient understands the risks and benefits of the procedure and understands that these r isks include, but are not limited to: sedation, allergic reaction, infection, perforation and/or bleeding. Alternative means of evaluation and treatment include, among others: physical exam, x-rays, and/or surgical intervention. The patient elects to proceed with this endoscopic procedure. DESCRIPTION OF PROCEDURE: During pre-op preparation period all mechanical and medical equipment was c hecked for proper function. Hand hygiene and appropriate measures for infection prevention was taken. After the risks, benefits and alternatives of the procedure were thoroughly explained, Informed consent was verified, confirmed and timeout was successfully executed by the treatment team. The patient was anesthetized with topical anesthesia and the [id number] ([id number]) endoscope was introduced through the mouth and advanced to the second portion of the duoden um. Retroflexion was performed in the stomach and revealed no abnormalities. The gastroscope was then slowly withdraw n and removed. The patient's toleration of the procedure was good. ESOPHAGUS: Z line was noted at 46 cms. PERTINENT NEGATIVES: There was no evidence of varices. STOMACH: Two non-bleeding, linear and shallow ulcers ranging between 3-5 mm in size ranging between 3 -7mm in size were found in the gastric antrum and at the pylorus. Moderate acute gastritis (inflammation) was found i n the gastric antrum. DUODENUM: The duodenal mucosa showed no abnormalities in the duodenal bulb, 1st part duodenum, and 2n d part duodenum. ADVERSE EVENTS: There were no complications. IMPRESSIONS: 1. Z line was noted at 46 cms 2. Two ulcers ranging between 3-5 mm in size were found in the gastric antrum and at the pylorus 3. Acute gastritis (inflammation) was found in the gastric antrum 4. The duodenal mucosa showed no abnormalities in the duodenal bulb, 1st part duodenum, and 2nd part duodenum RECOMMENDATIONS: 1. Start PPI BID for 90 days Start Iron C BID and MVi QD for 90 days Quit Alcohol completely Avoid NSAIDs for now. RTC 3 months for repeat EGD. 2. Start anti-reflux diet. 3. Avoid drinking soda, coffee and fruit juices 4. Avoid eating fatty or fried foods, tomato sauce, chocolate, garlic and onions 5. Avoid overeating by eating smaller meals 6. Wait at least three hours after eating before lying down or going to bed 7. Excess pounds put pressure on your abdomen, pushing up your stomach and causing acid to back up i nto your esophagus 8. Smoking decreases the lower esophageal sphincter's ability to function propertly 9. Clothes that fit tightly around your waist puts pressure on your abdomen 10. Elevating the bed 6 to 9 inches will reduce heartburn while trying to sleep REPEAT EXAM: Caden Saxena MD eSigned: Caden Saxena MD 03/29/2019 9:00 AM CC: CPT CODES: 48123 Upper gastrointestinal endoscopy including esophagus, stomach, and either the du odenum and/or jejunum as appropriate; diagnostic, with or without collection of specimen(s) by brushing or washing (separate procedure) ICD CODES: The ICD and CPT codes recommended by this software are interpretations from the data that the [facility] staff has captured with the software. The verification of the translation of this report to the ICD and CPT co leatha and modifiers is the sole responsibility of the health care institution and practicing physician where this report was generated. [employer] will not be held responsible for the validity of the ICD and CPT codes i ncluded on this report. [employer] assumes no liability for data contained or not contained herein. CPT is a registered tra demark of the [employer]. PATIENT NAME: David Bhat MR#: [id number]
[2019-03-29] MEDS: PROTONIX IV SCH ×2 (11:02→21:22)
[2019-03-29] MEDS: FOLIC ACID PO SCH (11:07)
[2019-03-29] MEDS: VITAMIN B-1 PO SCH (11:08)
--- NOTE | 2019-03-29 15:05 | PROVIDER PROGRESS NOTE ---
Progress Note Subjective: He complains of itching and anxiety. He denies shortness of breath, chest pain, n/v, or decreased appetite today. Objective: temperature 98.0, pulse 79, respirations 17, blood pressure 129/82, 02 sat 99% on room air. General: obese white male lying in bed in no acute distress. HEENT: normocephalic, atraumatic, conjunctiva pale. Pupils equal and reactive. Mucous membranes moist. Trachea midline. Skin: warm and dry. Red spider veins to face. Neck: supple, 6cm JVD observed Cardiovascular: S1, S2. Regular rate and rhythm. No murmur or gallop noted. Respiratory: clear bilaterally with equal air entry anteriorly Abdomen: soft, obese, nontender, nondistended. Positive bowel sounds. : none inspected, belle in place with lawson urine noted. Extremities: no clubbing, cyanosis, or edema noted. Neurological: alert and oriented to person, place, and time. Labs: Wbc 4.76, hemoglobin 6.9, hematocrit 22.2, platelet count 121, sodium 142, potassium 3.7, chloride 107, carbon dioxide 23, BUN 18, creatinine 1.6. Intake 3129 output 2000. Impression: Acute kidney injury. BUN and Creatinine improving. He is making adequate urine output. There is no indication for urgent renal replacement therapy. We will continue to monitor and plan on seeing him in the office after he discharges. Blood pressure. In target. Fluid volume. Euvolemic on exam. Anemia. 1 unit PRBC ordered by primary. Electrolytes and acid base balance. Improving. Nutrition. Recently NPO for scope. Defer diet to GI/PMD. Ambulation. PT consulted. Medication review. No changes.
[2019-03-29] MEDS: ICAR-C PO SCH ×2 (15:44→21:21)
[2019-03-29] MEDS: CENTRUM SILVER PO SCH (15:44)
[2019-03-30] MEDS: HUMULIN R SUBQ SCH ×2 (00:01→06:16)
[2019-03-30 05:42] LABS: BASO# 0.01 X1000 (0.0-0.2); BASO% 0.2 % (0.0-0.8); EOS# 0.24 X1000 (0.0-0.7); EOS% 4.6 % (0.0-10.0); HEMATOCRIT 24.7 % (42.0-52.0); HEMOGLOBIN 7.9 g/dL (14.0-18.0); IMM GRAN# 0.02 X1000 (0.0-0.04); IMM GRAN% 0.4 % (0.0-0.5); LYMPH% 20.9 % (20.5-51.1); MCH 36.1 PG (27-31); MCV 112.8 FL (81-99); MONO# 0.48 X1000 (0.11-0.59); MONO% 9.1 % (1.7-9.3); NEUT# 3.41 X1000 (1.4-6.5); NEUT% 64.8 % (42.2-75.2); PLT 113 X1000 (130-400); RBC 2.19 XMIL (4.7-6.1); RDW 16.3 % (11.5-14.5); WBC 5.26 X1000 (4.8-10.8)
[2019-03-30 06:26] LABS: CALCIUM 9.3 mg/dL (8.8-10.2); CREATININE 1.3 mg/dL (0.7-1.2); POTASSIUM 4.3 mmol/L (3.5-5.1)
[2019-03-30] MEDS: PROTONIX IV SCH ×2 (09:06→09:13)
[2019-03-30] MEDS: FOLIC ACID PO SCH (09:06)
[2019-03-30] MEDS: CENTRUM SILVER PO SCH (09:06)
[2019-03-30] MEDS: LIBRIUM PO SCH (09:06)
[2019-03-30] MEDS: VITAMIN B-1 PO SCH (09:06)
[2019-03-30] MEDS: ICAR-C PO SCH (09:06)
[2019-03-30] MEDS ORDERED: PROTONIX PO ONE (09:13)
[2019-03-30 09:30] VITALS: BP 137/84
--- NOTE | 2019-03-30 10:14 | ORTHOPAEDICS CONSULTATION ---
DATE: 03/29/2019 CHIEF COMPLAINT: Kidney issues. HISTORY OF PRESENT ILLNESS: Mr. David Bhat is a 53-year-old male who is well- known to my repeated practice. He was admitted to the hospital for evaluation of coffee-grounds emesis and kidney issues. I have been following Mr. Bhat for a long time. He unfortunately had a fractured ankle back in 2018 on which I performed open reduction and internal fixation. Ultimately, he did not heal well. Then it got infected so we removed all his hardware in January of 2018. Since then, he has been doing okay. He has been battling some wounds here and there and had been battling neuropathy as well. His most recent visit, he developed an ulcer of the dorsomedial aspect of his great toe, which we have been following. I did put him on Keflex and was going to see him back in a week. He is admitted the hospital now for these kidney issues. PAST MEDICAL HISTORY: Type 2 diabetes, diabetic neuropathy, ankle infection, history of alcohol abuse. PAST SURGICAL HISTORY: Right ankle surgery in April 2017 for open reduction and internal fixation of ankle and subsequent hardware removal and irrigation and debridement in January of 2018 due to an infection. SOCIAL HISTORY: He does admit to alcohol use daily. ALLERGIES: No known drug allergies. MEDICATIONS: Per the medical record. REVIEW OF SYSTEMS: Positive for diabetic neuropathy, diabetic foot ulcers, and everything listed above. PHYSICAL EXAMINATION: General: Mr. Bhat is lying in bed. No acute distress. Head and Neck: Normocephalic, atraumatic. Respirations: Nonlabored breathing. Cardiovascular: Regular rate. Abdomen: Nondistended this morning. Extremity Examination: Right lower extremity, he does have a superficial wound to the great toe. It does not look like it goes deep at this point. There is just a little bit of erythema around it. ASSESSMENT: 1. Right diabetic foot ulcer. 2. Right Charcot ankle. PLAN: From an orthopedic standpoint, we are just going to continue the dressing changes. I think this will heal up in time. It is going to take him a while because he is not very healthy at this point in his life. He has Santyl to put on there, which is what I would recommend at this point, cleaning it with Vashe and then putting Santyl on the wound daily. If it is draining a lot, then change the dressings twice a day. Then I will see him back in the clinic after he is discharged from the hospital. cc: Lowell Henderson MD MTDD
--- NOTE | 2019-03-30 19:05 | PROVIDER PROGRESS NOTE ---
Progress Note Subjective: Pt voices wanting to go home and wanting to increase his diet from liquids. He said his first void after Lopez catheter removal burned but has not since. No other complaints noted. Objective: temperature 97.5, pulse 77, blood pressure 139/73, O2 sat 100% on room air. General: obese white male lying in bed in no acute distress. HEENT: normocephalic, atraumatic, conjunctiva pale. Pupils equal and reactive. Mucous membranes moist. Trachea midline. Skin: warm and dry. Red spider veins to face. Neck: supple, 6cm JVD observed Cardiovascular: S1, S2. Regular rate and rhythm. No murmur or gallop noted. Respiratory: clear bilaterally with equal air entry anteriorly Abdomen: soft, obese, nontender, nondistended. Positive bowel sounds. : none inspected. Extremities: no clubbing or cyanosis. Trace edema noted. Neurological: alert and oriented to person, place, and time. Labs: Wbc 5.26, hemoglobin 7.9, hematocrit 24.7, platelet count 113, Sodium 139, potassium 4.3, chloride 105, carbon dioxide 27, BUN 13, creatinine 1.3. Intake 590, output 1200. Impression: Acute kidney injury. BUN and Creatinine continue to improve. He is making adequate urine output and voiding on his own. There is no indication for urgent renal replacement therapy. We will continue to monitor and plan on seeing him in the office after he discharges. Blood pressure. In target. Fluid volume. Euvolemic on exam. Anemia. Stable. Electrolytes and acid base balance. Improving. Nutrition. Increase as tolerated. Ambulation. Ambulating in room. Medication review.
--- NOTE | 2019-03-30 23:13 | PROVIDER PROGRESS NOTE ---
Progress Note S: O: Last Vital Signs Temp 98.3 F 03/30/19 08:00 Pulse 77 03/30/19 08:00 Resp 22 03/30/19 08:00 BP 137/84 03/30/19 08:00 Pulse Ox 100 03/30/19 08:00 Height 5 ft 8 in Weight 257 lb LABS: 03/30/19 03/30/19 04:52 04:52 WBC 5.26 Hgb 7.9 L Plt Count 113 L Sodium 139 Potassium 4.3 D Chloride 105 Carbon Dioxide 27 Anion Gap 7 BUN 13 Creatinine 1.3 H EGD 03/29/2019 IMPRESSIONS: 1. Z line was noted at 46 cms 2. Two ulcers ranging between 3-5 mm in size were found in the gastric antrum and at the pylorus 3. Acute gastritis (inflammation) was found in the gastric antrum 4. The duodenal mucosa showed no abnormalities in the duodenal bulb, 1st part duodenum, and 2nd part duodenum
--- NOTE | 2019-03-31 12:01 | DISCHARGE SUMMARY ---
ADMISSION DATE: 03/27/2019 DISCHARGE DATE: 03/30/2019 DISCHARGE DIAGNOSES: 1. Acute kidney injury, multifactorial, basically resolved. 2. Pancytopenia in a patient who has had coffee-grounds emesis. 3. Mild alcohol withdrawal symptoms. 4. Two ulcers ranging between 3 to 5 mm in size in the gastric antrum and the pylorus. 5. Gastritis. 6. Alcohol abuse. 7. History of diabetes with a normal hemoglobin A1c of 4.7. 8. History of hypertension. 9. Sleep apnea. 10. Hypomagnesemia. 11. Right diabetic foot ulcer and right Charcot ankle. PROCEDURES PERFORMED: 1. Chest x-ray dated 03/27/2019. Impression: No evidence of acute pathology by plain radiograph. 2. Renal ultrasound dated 03/27/2019. Impression: No evidence of obstructive uropathy, cholelithiasis. CONSULTS: 1. Nephrology department, Dr. Blackwell. 2. Gastroenterology department, Dr. Saxena. 3. Orthopedic surgery department, Dr. Henderson. HOSPITAL COURSE: A 53-year-old, male with a past medical history of hypertension, arthritis, diabetes, diabetic neuropathy, and alcohol abuse. The patient was sent apparently to the ER for further evaluation due to abnormal labs related to renal function. It looks like there has been an increase recently on his creatinine. He has been having more weakness and fatigue for the past month. At the beginning of the year, he states that he had some episodes of coffee- grounds emesis and melenic stools but they resolved in less than 24 hours. He denies headache but occasionally he is dizzy, usually when he changes positions from the sitting to standing position. No chest pain. No shortness of breath. Sometimes he has some cough but this is basically chronic. No abdominal pain, nausea, vomiting, diarrhea. No dysuria or decreased urine output that he noticed. He does have occasional swelling in the bilateral lower extremities but this is his baseline as well. He has a history of diabetic neuropathy. He denies any fever, body aches, or chills. He has a chronic diabetic ulcer on the right side. Apparently, he was taking lisinopril, metformin, and gabapentin at home, and also hydrochlorothiazide and allopurinol. He has a history of heavy drinking and sometimes he states that he has some withdrawal symptoms which, for him, are characterized by shakiness but he never had a seizure or confusion. The patient lives by himself. Because of the anemia, and the history of black stools and coffee- grounds emesis, this patient went to the OR for an endoscopy which showed 2 ulcers ranging between 3 to 5 mm in size, found in the gastric and antrum and the pylorus, gastritis as well in the gastric antrum. He has been recommended to avoid any coffee, soda, fruit juice, fast food, garlic, onions, tomato sauce, fried foods, avoid overeating by eating smaller meals. Also antireflux diet. Wait at least 3 hours after eating before laying down or going to bed, smoking cessation, and some other recommendations. He has been placed on proton pump inhibitors twice a day for 90 days. He will need to repeat an endoscopic procedure in 3 months. Also, he has been evaluated by the nephrology department and orthopedic surgery department. His kidney function is improving slowly and he is making good urine. Orthopedic surgery department evaluated the diabetic ulcer and it looks like it is healing well so they will follow this patient as an outpatient. The patient will be discharged today. All the recommendations were given. He needs to follow up with the orthopedic surgery department, primary care doctor, as well as gastroenterology department. At the moment of discharge, this patient was in a stable medical condition. Tolerating p.o. and ambulating. On the other hand, this patient started having some tremors and some anxiety, probably related to his alcohol and alcohol withdrawal, so I went ahead and I put this patient on Librium, which I will continue at home for a few days. PHYSICAL EXAMINATION: Vital Signs: Temperature 98.3 degrees, pulse 77, respiratory rate 22, blood pressure 138/84, oxygen saturation 100% on room air. HEENT: Head normocephalic. No trauma. PERRLA. Neck: Supple. No JVD. No masses. Central trachea. Chest: Clear to auscultation. No wheezing. No rales. Abdomen: Soft, nontender, nondistended. No hepatosplenomegaly. Extremities: No edema, no clubbing, no cyanosis. He has an ulcer at the level of the right dorsal aspect of the right foot. Neurological Examination: Awake, alert, and oriented x3. No focal deficits. LABORATORY DATA: WBC 5.2, hemoglobin 7.9, hematocrit 24.7, platelets 113,000. Sodium 139, potassium 4.3, chloride 105, bicarbonate 27, BUN 13, creatinine 1.3, glucose 88, calcium 9.3. DISCHARGE MEDICATIONS: 1. Acetaminophen 650 mg p.o. q.6 hours as needed for fever. 2. Allopurinol 300 mg p.o. daily. 3. Librium 10 mg p.o. t.i.d. for a couple days, then twice a day, then once a day, then as needed. 4. Folic acid 1 mg p.o. daily. 5. Icar-C 1 tablet p.o. b.i.d. 6. Lisinopril 20 mg p.o. daily. 7. Metoprolol 50 mg p.o. b.i.d. 8. Centrum Silver 1 tablet p.o. daily. 9. Pantoprazole 40 mg p.o. b.i.d. 10. Thiamine 100 mg p.o. daily. Time discharging this patient and discussing with him all the recommendations, around 25 minutes. cc: Evaristo Martinez MD
== END 2019-03-30 12:07 | disposition home or self-care (01) | DRG 682 ==
LOC: ED 22:54 → 1N 03-27 06:02 → SUATTDRO 03-27 06:02
PROVIDERS: ATTEND Internal Medicine